=== PATIENT | male | born 1965 | race Caucasian/White ===

== ENCOUNTER 2019-07-18 15:29 | Outpatient (CLI) | payer BC, OTHER ==
[2019-07-18] MEDS ORDERED: LISI-170 PO (15:50)
[2019-07-18 16:15] LABS: ALANINE AMINOTRANSFERASE 35 U/L (12-78); ALBUMIN 3.7 g/dL (3.4-5.0); ANION GAP 4 mmol/L (5-15); CALCIUM 9.2 mg/dL (8.5-10.1); CHLORIDE 105 mmol/L (98-107); CREATININE 1.24 mg/dL (0.7-1.3)
[2019-07-18 16:17] LABS: ALKALINE PHOSPHATASE 134 U/L (45-117); BILIRUBIN,TOTAL 0.5 mg/dL (0.2-1.0); TOTAL PROTEIN 8.4 g/dL (6.4-8.2)
== END 2019-07-18 23:59 | disposition home or self-care (01) ==
LOC: STAR 15:29
PROVIDERS: ATTEND Surgery
DX: Z01.818 Encounter for other preprocedural examination (principal); K46.9 Unspecified abdominal hernia without obstruction or gangrene; F17.200 Nicotine dependence, unspecified, uncomplicated
CPT/HCPCS: 36415; 80053

== ENCOUNTER 2019-07-24 09:58 | Day surgery (SDC) | payer BC, OTHER ==
[~2019-07-24] VITALS: Ht 170.2 cm; Wt 81.8 kg
[~2019-07-24 09:58] MED LIST: LISI-170 PO
[2019-07-24] MEDS ORDERED: LACTATED RINGERS 1,000 ML IV SCH (10:22)
[2019-07-24 10:25] VITALS: BP 145/109
[2019-07-24 10:53] LABS: AMPHETAMINE SCREEN, URINE Negative (Negative); BARBITURATE SCREEN, URINE Negative (Negative); BENZODIAZEPINE SCREEN, URINE Negative (Negative); CANNABINOID SCREEN, URINE Negative (Negative); COCAINE SCREEN, URINE Negative (Negative); METHADONE SCREEN, URINE Negative (Negative); OPIATE SCREEN, URINE Negative (Negative)
[2019-07-24] MEDS ORDERED: PROPOFOL 10 MG/ML, 20ML ONE (11:31)
[2019-07-24] MEDS ORDERED: ROCURONIUM 10MG/ML,5ML ONE (11:31)
[2019-07-24] MEDS ORDERED: ONDANSETRON 2MG/ML, 2ML ONE (11:31)
[2019-07-24] MEDS ORDERED: KETOROLAC 30 MG/1 ML ONE (11:31)
[2019-07-24] MEDS ORDERED: DEXAMETHASONE 4 MG/ML, 1ML ONE (11:31)
[2019-07-24] MEDS ORDERED: CEFOTETAN 2 GM ONE (11:31)
[2019-07-24] MEDS ORDERED: FENTANYL PF 250 MCG/5ML ONE (11:32)
[2019-07-24] MEDS ORDERED: MIDAZOLAM 1 MG/ML, 2ML ONE (11:32)
[2019-07-24] MEDS ORDERED: SUGAMMADEX 200 MG/2 ML IVPush ONE (11:49)
[2019-07-24] MEDS ORDERED: EPINEPHRINE 1 MG/ML, 1ML ONE (11:49)
[2019-07-24] MEDS ORDERED: BUPIVACAINE/PF 0.25% ONE (11:49)
[2019-07-24] MEDS ORDERED: ALBUTEROL/IPRATROPIUM 2.5MG/0.5MG, 3 ML NPPB PRN (12:30)
[2019-07-24] MEDS ORDERED: LABETALOL 5MG/ML, 20ML IV PRN (12:30)
[2019-07-24] MEDS ORDERED: FENTANYL PF 100 MCG/2ML IV PRN (12:30)
[2019-07-24] MEDS ORDERED: MEPERIDINE/PF 25MG/ML,1ML IVPush PRN (12:30)
[2019-07-24] MEDS ORDERED: ACETAMINOPHEN 325 MG TABLET PO PRN (12:30)
[2019-07-24] MEDS ORDERED: HYDROmorphone 2 MG/ML, 1ML IVPush PRN ×2 (12:30→13:00)
[2019-07-24] MEDS ORDERED: OXYcodone 5 MG/5 ML ORAL.SOL UDC PO PRN ×2 (12:30→13:00)
[2019-07-24] MEDS ORDERED: PROMETHAZINE 25 MG/ML, 1ML IV PRN (12:30)
== END 2019-07-24 14:30 | disposition home or self-care (01) ==
LOC: OUT 09:58
PROVIDERS: ATTEND Surgery
DX: K42.0 Umbilical hernia with obstruction, without gangrene (principal); I10 Essential (primary) hypertension; F17.210 Nicotine dependence, cigarettes, uncomplicated; Z79.899 Other long term (current) drug therapy; Z98.890 Other specified postprocedural states; Z82.49 Family history of ischemic heart disease and other diseases of the circulatory system
CPT/HCPCS: 49587; 80307; C1781; J0171; J1100; J1885; J2250; J2405; J2704; J3010; J3490; J7120